=== PATIENT | male | born 1970 | race Caucasian/White ===

== ENCOUNTER → 2017-06-23 | Outpatient (CLI) | payer OTHER ==
--- NOTE | 2017-06-23 12:43 | RAD ---
EXAM: Right knee, 3 views; right shoulder, 3 views; cervical spine, 4 views. HISTORY: Pain. COMPARISON: None. FINDINGS: Right knee: Frontal, lateral and oblique views of the right knee are obtained. There is no fracture, dislocation or subluxation. No effusion is seen. Right shoulder: Internal and external rotation and transscapular views of the right shoulder are obtained. There is no fracture, dislocation or subluxation. There is mild distal clavicular spurring and subchondral sclerosis. Cervical spine: Frontal, lateral, swimmer's and odontoid views of the cervical spine are obtained. There is straightening of cervical lordosis. There is degenerative endplate remodeling with spurring at C5-C6. No fracture is seen. IMPRESSION: 1. Mild right acromioclavicular osteoarthritis. 2. Degenerative change within the cervical spine, predominantly at C5-C6. 3. No acute osseous finding.
== END | disposition home or self-care (01) ==
LOC: DXRAD 11:59
PROVIDERS: ATTEND Family Medicine
DX: M47.892 Other spondylosis, cervical region (principal); M19.011 Primary osteoarthritis, right shoulder; M25.561 Pain in right knee
CPT/HCPCS: 72040; 73030; 73562